=== PATIENT | female | born 1960 | race Caucasian/White ===

== ENCOUNTER 2025-04-05 14:43 | Emergency (ER) | payer MEDICAID, SELFPAY ==
[2025-04-05 14:49] VITALS: BP 160/77; PULSE 58; RESP 18; TEMP 36.5; O2SAT 96; BMI 27.6
--- NOTE | 2025-04-05 14:54 | PD.EDRME ---
Rapid Medical Screening Exam RME Arrival date/time: 04/05/25 14:43 64-year-old female presents to the emergency department for complaints of headache and unsteady gait since Monday patient was seen by PCP and referred to ER for further evaluation Chief Complaint: Headache Vital signs: Vital Signs Temperature 97.7 F 04/05/25 14:49 Pulse Rate 58 L 04/05/25 14:49 Respiratory Rate 18 04/05/25 14:49 Blood Pressure 160/77 H 04/05/25 14:49 Pulse Oximetry (%) 96 04/05/25 14:49 Oxygen Delivery Method Room Air 04/05/25 14:49 Vital signs reviewed by provider: Yes Exam: On exam patient well-appearing does not appear ill or toxic initial neurological exam within normal limits Patient GCS of 15 Clinical Impression: Lab work and imaging obtained
--- NOTE | 2025-04-05 15:01 | XR_ITS ---
Examination: CT brain head without contrast. 2-D sagittal coronal reconstructions Date and time of exam: April 05, 2025, 1409 hours INDICATIONS: Headache unsteady gait today CTDI: vol (mGy): 47 DLP: (mGycm): 900 Technique: Multiple CT axial sections of the brain have been obtained, 5 mm slice thickness. Contrast has not been administered. 2-D sagittal, coronal reconstructions have been obtained Low dose protocols were performed. One or more of the following dose reduction techniques were used; automated exposure control, adjustment of the mA and/or KV according to patient size, use of iterative reconstruction technique. Findings: No significant ventricular enlargement. Intra-axial or extra-axial hemorrhage density is not seen. No mass effect or midline shift Basal cisterns are not remarkable. Fourth ventricle is midline. Cranial vault intact. Impression: Negative for acute hemorrhage, mass effect or midline shift Given the patient's presentation, as clinically warranted, consider brain MRI follow-up
[2025-04-05 15:32] LABS: Basophils # (Auto) 0.0 Thou/mm3 (0.0-0.2); Basophils % (Auto) 0 % (0-2.5); Eosinophils # (Auto) 0.0 Thou/mm3 (0.0-0.5); Eosinophils % (Auto) 0 % (0-10); Hematocrit 43.9 % (36.0-46.0); Hemoglobin 14.6 g/dL (12.0-16.0); Immature Granulocytes Auto 0.02 Thou/mm3 (0.00-0.00); Lymphocytes # (Auto) 1.3 Thou/mm3 (1.0-4.8); Lymphocytes % (Auto) 13 % (10-50); Mean Corpuscular HGB Conc 33.3 g/dl (31.0-37.0); Mean Corpuscular Hemoglobin 29.4 pg (25.0-35.0); Mean Corpuscular Volume 89 fL (80-100); Monocytes # (Auto) 0.4 Thou/mm3 (0.0-0.8); Monocytes % (Auto) 5 % (0-12); Neutrophils # (Auto) 7.9 Thou/mm3 (1.8-7.7); Neutrophils % (Auto) 82 % (37-80); Nucleated Red Blood Cell # 0.00 Thou/mm3 (0.00-0.00); Nucleated Red Blood Cell % 0 /100 WBC (0); Platelet Count 315 Thou/mm3 (140-440); RDW Standard Deviation 44.1 fL (36.4-46.3); Red Blood Count 4.96 Miln/mm3 (4.00-5.20); White Blood Count 9.6 Thou/mm3 (3.6-11.0)
[2025-04-05 15:48] LABS: Alanine Aminotransferase 32 U/L (10-49); Albumin, Serum 4.4 gm/dL (3.4-4.8); Albumin/Globulin Ratio 1.8 (1.2-2.2); Alkaline Phosphatase 95 U/L (46-116); Anion Gap 10 (7-16); Aspartate Amino Transferase 32 U/L (0-34); BUN/Creatinine Ratio 12 Ratio (12-20); Bilirubin,Total 0.7 mg/dL (0.3-1.2); Blood Urea Nitrogen 7 mg/dL (9-23); Calcium 9.3 mg/dL (8.3-10.6); Calcium (Corrected) 9.3 mg/dL (8.5-10.1); Carbon Dioxide 25.6 mMol/L (20.0-31.0); Chloride 109 mMol/L (98-107); Creatinine (Component) 0.6 mg/dL (0.6-1.3); Estimated Creatinine Clearance 72.5 mL/min (>60); Globulin 2.4 gm/dL (2.3-3.5); Glucose 118 mg/dL (74-106); Osmolality,Calculated 287 (275-295); Potassium 4.0 mMol/L (3.4-5.1); Sodium 145 mMol/L (136-145); Total Protein 6.8 gm/dL (5.7-8.2); eGFR > 60 See Note
[2025-04-05 15:51] LABS: Collection Type, Urine Clean Catch
[2025-04-05 16:22] LABS: Amorphous Crystals,Urine Present (Absent); Bilirubin,Urine Negative (Negative); Blood,Urine Negative (Negative); Clarity,Urine Turbid (Clear/Hazy); Color,Urine Lt-Yellow (Lt Yel-Yel); Culture Indicated,Urine Not Indicated; Glucose, Urine Negative (Negative); Ketones,Urine 1+ (Negative); Leukocyte Esterase,Urine Negative (Negative); Nitrite,Urine Negative (Negative); PH,Urine 8.0 (5.0-7.0); Protein,Urine Negative (Neg - Trace); RBC,Urine < 1 /hpf (0-3); Specific Gravity,Urine 1.017 (1.001-1.035); Squamous Epithelial Cell,Urine 1 /hpf (0-5); Urobilinogen,Urine Negative mg/dL (0.0-1.0); WBC,Urine 1 /hpf (0-5)
--- NOTE | 2025-04-05 19:11 | EDNOTE_ITS ---
ED Headache RME/HPI General Chief Complaint: Headache Stated Complaint: HEADACHE X 6 DAYS Time Seen by Provider: 04/05/25 18:25 Arrival date/time: 04/05/25 14:43 RME / HPI RME / HPI Narrative: 04/05/25 14:43 64-year-old female presents to the emergency department for complaints of headache and unsteady gait since Monday patient was seen by PCP and referred to ER for further evaluation DR. VILLATORO MAIN ED EVALUATION: Patient c/o migratory generalized CERDA maximal intensity gradual onset x 3 days, worse when leaning forward. Reports several bouts of nausea and vomiting. Denies phonophobia but reports photophobia. Reports right foot tends to veer to the right when walking. No visual, focal, or motor disturbances. PMH: Negative for DM, HTN, currently on ABX for oral infection PSH: Hysterectomy Allergies: Penicillin Social: Non-smoker, Non-drinker, No illicit drug abuse, Lives at home with Exam: On exam patient well-appearing does not appear ill or toxic initial neurological exam within normal limits Patient GCS of 15 Impression: Lab work and imaging obtained Related Data Home Medications ?Medication ?Instructions ?Recorded ?Confirmed omeprazole 20 mg capsule,delayed 20 mg PO QDAY ##30 release Allergies Allergy/AdvReac Type Severity Reaction Status Date / Time PCN Allergy Uncoded 04/05/25 14:44 Review of Systems Review of Systems Systems Reviewed: All systems reviewed, normal except as documented Past Medical History Past Medical History OTHER HISTORY: Positive Blood Transfusions ED Exam Narrative Physical exam: GEN. APPEARANCE: The patient is alert awake oriented X-3 under no distress, lying down comfortably, does not look ill/toxic. Patient has good eye contact. Patient is cooperative. VITALS: All vitals were reviewed and the pulse ox is 96%, which is normal according to my interpretation HEENT: Normocephalic, atraumatic and noted alodynia to BL temporal regions, tenderness to suboccipital notch L > R. Pupils are equal and reactive. No nystagmus. Oral mucosa is moist. NECK: Supple, nontender, no meningismus, no JVD. There is no thyromegaly and no lymphadenopathy. Without bruit. CHEST: Nontender on palpation no deformity and no crepitus. CARDIOVASCULAR: Heart regular rhythm, no murmur or gallop rub or extra beats. LUNGS: Clear to auscultation bilaterally with symmetrical chest rise. No laboring tachypnea or wheezing. No intercostal subcostal retraction. No rales and no rhonchi. ABDOMEN: Soft, flat, nontender to palpation, no guarding or rebound tenderness. There are no abnormal masses palpated. No pulsatile masses or bruits. Active and normal bowel sounds. EXTREMITIES: Normal inspection and palpation. No edema. No cyanosis. Patient is able to move all 4 extremities well SKIN: Warm and dry, no rashes noted. MUSCULOSKELETAL: No lumbar or midline bony tenderness. There is no CVA tenderness. No paraspinal muscle spasm or tenderness. NEURO: Cranial nerves II through XII grossly intact. There are no focal neurologic deficits noted. GCS is 15. Gait observed as normal. Normal finger to nose. PSYCHIATRIC: Patient is in normal mood and affect, cooperative. LYMPHATICS: No major lymphadenopathy noted. Course Quality Measures none Orders Category Date Time Status CT head/brain wo con Stat Exams 04/05/25 15:01 Completed CBC Stat Lab 04/05/25 15:22 Completed Comprehensive Metabolic Panel Stat Lab 04/05/25 15:22 Completed UA, C/S IF [Urinalysis, C/S if Indicated] Stat Lab 04/05/25 15:45 Completed Dexamethasone Inj [Decadron Inj] Med 04/05/25 19:17 Discontinued 10 mg IM X1 ONE Ketorolac Inj [Toradol Inj] Med 04/05/25 19:17 Discontinued 30 mg IM X1 ONE Prochlorperazine Inj [Compazine Inj] Med 04/05/25 19:17 Discontinued 5 mg IM X1 ONE Vital Signs Vital signs: Vital Signs Temperature 97.7 F 04/05/25 14:49 Pulse Rate 58 L 04/05/25 14:49 Respiratory Rate 18 04/05/25 14:49 Blood Pressure 160/77 H 04/05/25 14:49 Pulse Oximetry (%) 96 04/05/25 14:49 Oxygen Delivery Method Room Air 04/05/25 14:49 Headache MDM Narrative MDM Narrative:: Scribe Attestation: Marbella Gonzalez, am scribing for and in the presence of Dr. Villatoro. Provider Notation: Although this document has been carefully reviewed, there may still be some phonetic and other typographical errors. These errors are purely grammatical due to imperfections in the software program and should not be construed in any way to compromise the substance of the patient's medical care during this visit. Patient c/o migratory generalized CERDA maximal intensity gradual onset x 3 days, worse when leaning forward. Reports several bouts of nausea and vomiting. Please see PE findings. Laboratory markers, including CBC, are essentially unremarkable. Serum chemistries demonstrate mildly elevated chloride of 109 and glucose of 118. UA without infection. Patient's CERDA predominantly that of tension type. Patient was treated with NSAID, steroids, and phenothiazines with mild to moderate relief. CT scan obtained and deems to be negative. Will likely discharge to home with combination of muscle relaxant and anti-inflammatory, in addition to anti-emetic. Patient data External records reviewed:: [facility] previous records (No prior ED records available for review) Clinical information provided by:: patient Social determinants that could affect healthcare access:: none Patient has the following chronic illnesses:: None reported How is presenting disease/condition affected by chronic disease/condition?: no chronic disease Evaluation data The following diagnostics were reviewed and interpreted by me:: lab results and radiology exam(s) Lab and/or radiology exams considered but not ordered:: None Interpretation Summary: RADIOLOGY Head/Brain CT: Findings: No significant ventricular enlargement. Intra-axial or extra-axial hemorrhage density is not seen. No mass effect or midline shift Basal cisterns are not remarkable. Fourth ventricle is midline. Cranial vault intact. Impression: Negative for acute hemorrhage, mass effect or midline shift Given the patient's presentation, as clinically warranted, consider brain MRI follow-up Medications / Prescriptions Medications or Prescriptions considered but not ordered:: None Medication administrations:: Medication Administration History Discontinued Medications Dexamethasone Sodium Phosphate (Dexamethasone Sod Phos Inj 10 Mg/Ml Vial) 10 mg IM X1 ONE Stop: 04/05/25 19:18 Last Admin: 04/05/25 19:33 Dose: 10 mg Documented By: JALEN Ketorolac Tromethamine (Ketorolac Inj 30 Mg/Ml Vial) 30 mg IM X1 ONE Stop: 04/05/25 19:18 Last Admin: 04/05/25 19:33 Dose: 30 mg Documented By: JALEN Prochlorperazine Edisylate (Prochlorperazine Inj 5 Mg/Ml Vial 2 Ml) 5 mg IM X1 ONE; Protocol Stop: 04/05/25 19:18 Last Admin: 04/05/25 19:32 Dose: 5 mg Documented By: JALEN See above if any Consultations Consultation(s) initiated? (list below): No Diagnosis Differential diagnosis headache: migraine, tension headache, headache, meningitis and sinusitis Most likely diagnosis given after review of the tests above:: Tension Headache Admission Indicated Admission indicated?: not indicated Explain why admission is indicated or not indicated:: Patient does not meet admission criteria Admission Request Was there a request for admission?: No Disposition Plan Disposition Plan: Discharge Discharge Attestation Discharge Attestation: The patient and all family members were given an opportunity to ask questions and understood the discharge instructions. Discharge instructions specifically effects, indications for sooner follow up or return to the emergency department, and the expected course of current diagnosis. Patient condition: Stable Discharge Plan Plan Patient Disposition: HOME (Self Care) Prescriptions/Referrals Prescriptions/Med Rec: No Action omeprazole 20 MG capsule,delayed release(DR/EC) 20 mg PO QDAY Qty: 30 Referrals: Amy France FNP-C [Primary Care Provider] - In 1 week Problem List Clinical Impression: Tension headache Patient/Caregiver Discharge Instructions Print Language: [place] Stand Alone Forms: Edwina Award Info., Patient Portal Info Letter
[2025-04-05] MEDS: PROCHLORPERAZINE INJ 5 MG/ML VIAL 2 ML IM (19:32)
[2025-04-05] MEDS: KETOROLAC INJ 30 MG/ML VIAL IM (19:33)
[2025-04-05] MEDS: DEXAMETHASONE SOD PHOS INJ 10 MG/ML VIAL IM (19:33)
[2025-04-05 19:44] VITALS: BP 168/78; PULSE 61; RESP 18; TEMP 36.9; O2SAT 99
== END 2025-04-05 20:36 | disposition home or self-care (01) ==
PROVIDERS: Nurse Practitioner Primary Care; Emergency Provider Emergency Medicine
DX: G44.209 Tension-type headache, unspecified, not intractable (principal)
CPT/HCPCS: 36415; 70450; 80053; 81001; 85025; 96372; 99282; J0780; J1100; J1885

== ENCOUNTER 2025-04-07 19:08 | Emergency (ER) | payer MEDICAID, SELFPAY ==
[2025-04-07 19:14] VITALS: PULSE 74; RESP 18; O2SAT 99; BMI 23.3
--- NOTE | 2025-04-07 19:14 | XR_ITS ---
EXAMINATION: AP chest single view TECHNIQUE: 1. AP portable upright chest single view Date and time: April 07, 2025, 1954 hours INDICATIONS: Stroke alert today FINDINGS: Normal heart size No aspiration pneumonia No pulmonary edema. Moderate osteopenia IMPRESSION: Negative for aspiration pneumonia
--- NOTE | 2025-04-07 19:14 | XR_ITS ---
Examination: CTA carotids with intravenous contrast CTA brain, head with intravenous contrast. 2-D sagittal, coronal reconstructions. 3-D reconstructions. Exam date and time: April 07, 2025, 1950 hours INDICATIONS: Stroke alert, onset headache dizziness unsteady gait today CTDI: vol (mGy) 19.0 DLP: (mGycm) 386 Technique: Multiple CTA axial brain, head carotid images post intravenous contrast injection 75 cc, [id number]. 2-D sagittal, coronal reconstructions. 3-D reconstructions, 3-D post processing including vascular maximum intensity projection images. Low dose protocols were performed. One or more of the following dose reduction techniques were used; automated exposure control, adjustment of the mA and/or KV according to patient size, use of iterative reconstruction technique. Findings: Filling defects in the left internal jugular vein which may be flow phenomenon No significant common carotid carotid bifurcation or internal carotid artery stenoses Dominant right vertebral artery, no critical vertebral artery stenoses in the neck Intracranial vertebral arteries and basilar artery fill, the basilar artery is small but not occluded Posterior cerebral branches fill Both supraclinoid internal carotid arteries are also small but patent M1 segments middle cerebral arteries middle cerebral artery trifurcation vessels and anterior cerebral vessels fill IMPRESSION: No significant neck arterial stenoses No cerebral large vessel arterial occlusions Given the patient's presentation, consider brain MRI MRA without contrast, stroke protocol, follow-up
--- NOTE | 2025-04-07 19:14 | XR_ITS ---
Examination: CT brain head without contrast. 2-D sagittal coronal reconstructions Date and time of exam: April 07, 2025, 1928 hours, comparison April 05, 2025 INDICATIONS: Stroke alert, onset focal neurologic deficit including headache and unsteady gait CTDI: vol (mGy): 46.2 DLP: (mGycm): 904 Technique: Multiple CT axial sections of the brain have been obtained, 5 mm slice thickness. Contrast has not been administered. 2-D sagittal, coronal reconstructions have been obtained Low dose protocols were performed. One or more of the following dose reduction techniques were used; automated exposure control, adjustment of the mA and/or KV according to patient size, use of iterative reconstruction technique. Findings: No significant ventricular enlargement. Again noted cerebral calcifications Intra-axial or extra-axial hemorrhage density is not seen. No mass effect or midline shift Basal cisterns are not remarkable. Fourth ventricle is midline. Cranial vault intact. Impression: Negative for acute hemorrhage, mass effect or midline shift Given the same presentation and symptoms April 05, 2025, consider brain MRI follow-up stroke protocol
--- NOTE | 2025-04-07 19:14 | EKG_ITS ---
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
--- NOTE | 2025-04-07 19:14 | PD.EDNEURO ---
Neuro Symptoms Deficit-RME/HPI General Chief Complaint: General Adult/Misc Complain Stated Complaint: STROKE R/O Arrival date/time: 04/07/25 19:08 RME / HPI RME / HPI Narrative: DR. 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 Reports ongoing mild to moderate intensity headache. No nausea, comiting, confusion, or lateral motor or sensory disturbances. No vomiting. PMH: Negative for DM, HTN, currently on ABX for oral infection PSH: Hysterectomy Allergies: Penicillin Social: Non-smoker, Non-drinker, No illicit drug abuse, Lives at home with Related Data Home Medications ?Medication ?Instructions ?Recorded ?Confirmed omeprazole 20 mg capsule,delayed 20 mg PO QDAY ##30 04/13/15 release Previous Rx's ?Medication ?Instructions ?Recorded cyclobenzaprine 5 mg tablet 5 mg PO BID PRN muscle spasm #20 04/05/25 tabs naproxen 250 mg tablet 250 mg PO BID PRN pain #14 tabs 04/05/25 Allergies Allergy/AdvReac Type Severity Reaction Status Date / Time Penicillins Allergy Intermediate Nausea Verified 04/07/25 20:06 Review of Systems Review of Systems Systems Reviewed: All systems reviewed, normal except as documented Past Medical History Past Medical History OTHER HISTORY: Positive Blood Transfusions Social History SMOKING STATUS: Never smoker ED Exam Narrative Physical exam: GEN. APPEARANCE: The patient is alert awake oriented X-3 under no distress, lying down comfortably, does not look ill/toxic, unable to open left eyelid. Patient has good eye contact. Patient is cooperative. VITALS: All vitals were reviewed and the pulse ox is 99%, which is normal according to my interpretation HEENT: Normocephalic, atraumatic and nontender. Pupils are equal and reactive. Oral mucosa is moist. NECK: Supple, nontender, no meningismus, no JVD. There is no thyromegaly and no lymphadenopathy. CHEST: Nontender on palpation no deformity and no crepitus. CARDIOVASCULAR: Heart regular rhythm, no murmur or gallop rub or extra beats. LUNGS: Clear to auscultation bilaterally with symmetrical chest rise. No laboring tachypnea or wheezing. No intercostal subcostal retraction. No rales and no rhonchi. ABDOMEN: Soft, flat, nontender to palpation, no guarding or rebound tenderness. There are no abnormal masses palpated. No pulsatile masses or bruits. Active and normal bowel sounds. EXTREMITIES: Normal inspection and palpation. No edema. No cyanosis. Patient is able to move all 4 extremities well SKIN: Warm and dry, no rashes noted. MUSCULOSKELETAL: No lumbar or midline bony tenderness. There is no CVA tenderness. No paraspinal muscle spasm or tenderness. NEURO: Cranial nerves II through XII grossly intact. Left-sided nerve III palsy with pupillary dilatation. GCS is 15 PSYCHIATRIC: Patient is in normal mood and affect, cooperative. LYMPHATICS: No major lymphadenopathy noted. Course Course Course Narrative: 22:19 - Discussed with [facility] for transfer. Reviewed the patient?s HPI, PMHx, lab and/or radiology results. Discussed treatment plan. Will call back. 22:35 - Patient accepted by [facility] for transfer. Quality Measures Suspected type of Stroke: Unknown at this time Last know well: unknown Tenecteplase given: Reason(s) TPA not given: Symptoms suggest SAH (3rd N Palsy suggestive of cerebral aneurysm) not given stroke Orders Category Date Time Status Bedside Blood Glucose NOW Care 04/07/25 19:14 Completed Asphalt Paving Supervisor NOW Care 04/07/25 19:14 Completed Continuous Pulse Oximetry NOW Care 04/07/25 19:14 Completed EKG (ED ONLY) *Do not use* NOW Care 04/07/25 19:14 Completed Fingerstick [Bedside Blood Glucose] NOW Care 04/07/25 19:12 Completed In and Out Catheter NEEDED Care 04/07/25 19:14 Completed Insert IV NOW Care 04/07/25 19:14 Completed NIH Stroke Scale now Care 04/07/25 19:14 Completed NPO NOW Care 04/07/25 19:14 Completed Neuro Check Q2HR Care 04/07/25 19:14 Completed Nurse Swallow Screen x1 Care 04/07/25 19:14 Completed Consult to Neurology / Tele-Neurology Routine Cons 04/07/25 19:[address] angio stroke protocol Stat Exams 04/07/25 19:[address] stroke protocol Stat Exams 04/07/25 19:14 Completed EKG (ED Only) Stat Exams 04/07/25 19:14 Draft XR chest 1V portable Stat Exams 04/07/25 19:14 Completed CBC Stat Lab 04/07/25 19:22 Completed Comprehensive Metabolic Panel Stat Lab 04/07/25 19:22 Completed Drug Screen,Urine Stat Lab 04/07/25 20:35 Completed HCG Titer if Positive Stat Lab 04/07/25 19:22 Completed Magnesium Stat Lab 04/07/25 19:22 Completed Partial Thromboplastin Time Stat Lab 04/07/25 19:22 Completed Prothrombin Time with INR Stat Lab 04/07/25 19:22 Completed Troponin I Stat Lab 04/07/25 19:22 Completed Urinalysis, C/S if Indicated Stat Lab 04/07/25 20:35 Completed Morphine* Inj Med 04/07/25 20:09 Discontinued 4 mg IV X1 ONE Ondansetron Inj [Zofran Inj] Med 04/07/25 19:14 Discontinued 4 mg IVP Q4HR PRN Sodium Chloride 0.9% 1000 ml [Ns] 1,000 ml Med 04/07/25 19:15 Discontinued IV Q10H Oxygen Delivery NOW RT 04/07/25 19:14 Completed Vital Signs Vital signs: Vital Signs Temperature 98.6 F 04/07/25 19:21 Pulse Rate 65 04/07/25 19:21 Respiratory Rate 18 04/07/25 19:21 Blood Pressure 160/96 H 04/07/25 19:21 Pulse Oximetry (%) 96 04/07/25 19:21 Oxygen Delivery Method Room Air 04/07/25 19:21 Neuro Symptoms / Deficit MDM Narrative MDM Narrative:: Scribe Attestation: Marbella Gonzalez am scribing for and in the presence of Dr. Villatoro. Provider Notation: Although this document has been carefully reviewed, there may still be some phonetic and other typographical errors. These errors are purely grammatical due to imperfections in the software program and should not be construed in any way to compromise the substance of the patient's medical care during this visit. Patient seen by undersigned 1 day PRODUCTION CONTROL COORDINATING CLERK for gradually increasing generalized headache of approximately 3 weeks duration treated for mixed headache who reportedly this morning was unable to open the left eyelid. Reports ongoing mild to moderate intensity headache. Please see PE findings. Laboratory markers, including CBC and serum chemistries, demonstrate normal CBC, slight left shift without bands. Serum chemistries essentially unremarkable. UA demonstrates ketonuria. Toxicology screen is negative. Patient was enrolled in stroke protocol. Head CT deemed to pbe negative. CTA slightly suboptimal study, although there appears to be a distal right ICA. Case discussed with radiologist and neurotelli doctors, and will consider transfer for four vessel angiography to further delineate possible aneurysm with resultant nerve III palsy. Patient remained neurologically unchanged throughout ED course. Final diagnoses include Third nerve Palsy, R/O cerebral Aneurysm. Patient data External records reviewed:: [facility] [place] (Reviewed prior ED records from 04/05/25. Patient was seen for Tension headache.) and EMS form Clinical information provided by:: patient and EMS Social determinants that could affect healthcare access:: none Patient has the following chronic illnesses:: None reported How is presenting disease/condition affected by chronic disease/condition?: no chronic disease Evaluation data The following diagnostics were reviewed and interpreted by me:: lab results, radiology exam(s) and EKG tracing(s) (EKG demonstrates Sinus bradycardia with rate of 58 bpm, no acute ST segment changes, no ventricular ectopy, axis leftward, intervals are normal, per my interpretation.) Lab and/or radiology exams considered but not ordered:: None Interpretation Summary: RADIOLOGY Head/Brain CT: Findings: No significant ventricular enlargement. Again noted cerebral calcifications Intra-axial or extra-axial hemorrhage density is not seen. No mass effect or midline shift Basal cisterns are not remarkable. Fourth ventricle is midline. Cranial vault intact. Impression: Negative for acute hemorrhage, mass effect or midline shift Given the same presentation and symptoms April 05, 2025, consider brain MRI follow-up stroke protocol Head/Neck CTA: Findings: Filling defects in the left internal jugular vein which may be flow phenomenon No significant common carotid carotid bifurcation or internal carotid artery stenoses Dominant right vertebral artery, no critical vertebral artery stenoses in the neck Intracranial vertebral arteries and basilar artery fill, the basilar artery is small but not occluded Posterior cerebral branches fill Both supraclinoid internal carotid arteries are also small but patent M1 segments middle cerebral arteries middle cerebral artery trifurcation vessels and anterior cerebral vessels fill IMPRESSION: No significant neck arterial stenoses No cerebral large vessel arterial occlusions Given the patient's presentation, consider brain MRI MRA without contrast, stroke protocol, follow-up Chest X-Ray: FINDINGS: Normal heart size No aspiration pneumonia No pulmonary edema. Moderate osteopenia IMPRESSION: Negative for aspiration pneumonia Medications / Prescriptions Medications or Prescriptions considered but not ordered:: None Medication administrations:: Medication Administration History Discontinued Medications Sodium Chloride (Ns) 1,000 mls @ 100 mls/hr IV Q10H ALBA Stop: 05/07/25 19:14 Last Admin: 04/07/25 20:01 Dose: 100 mls/hr Documented By: DT Morphine Sulfate (Morphine Sulf Inj 4 Mg/Ml Vial) 4 mg IV X1 ONE Stop: 04/07/25 20:10 Last Admin: 04/07/25 20:27 Dose: 4 mg Documented By: DT Ondansetron HCl (Ondansetron Inj 2 Mg/Ml Inj 2 Ml) 4 mg IVP Q4HR PRN PRN Reason: NAUSEA OR VOMITING Stop: 05/07/25 19:13 Last Admin: 04/07/25 20:26 Dose: 4 mg Documented By: DT See above if any Consultations Consultation(s) initiated? (list below): Yes Consultation #1 (Physician, Specialty, Details): Telline[facility]rologist made aware of the patient?s HPI, PMHx, lab and/or radiology results. Discussed treatment plan. Pending soft-tissue neck and chest CT with contrast. Will call back for further consult. Time: 19:47 Consultation #2 (Physician, Specialty, Details): Discussed radiology findings with Telline[facility]rologists. Time: 20:55 Consultation #3 (Physician, Specialty, Details): Discussed with [facility] for transfer. Reviewed the patient?s HPI, PMHx, lab and/or radiology results. Discussed treatment plan. Declines transfer, recommends [facility] or [facility]. Time: 22:16 Diagnosis Neuro Differential Diagnosis: convulsions, delirium, peripheral neuropathy, cerebrovascular accident, multiple sclerosis and transient cerebral ischemia Most likely diagnosis given after review of the tests above:: Third cranial nerve palsy, R/O cerebral aneurysm Admission Indicated Admission indicated?: not indicated Explain why admission is indicated or not indicated:: Pending transfer Admission Request Was there a request for admission?: No Disposition Plan Disposition Plan: Transfer Discharge Plan Plan Patient Disposition: [facility] Pt Being Transferred to: [facility] Service Needed for Transfer: Neurosurgery Prescriptions/Referrals Prescriptions/Med Rec: No Action omeprazole 20 MG capsule,delayed release(DR/EC) 20 mg PO QDAY Qty: 30 cyclobenzaprine 5 mg tablet 5 mg PO BID PRN (Reason: muscle spasm) Qty: 20 0RF naproxen 250 mg tablet 250 mg PO BID PRN (Reason: pain) Qty: 14 0RF Referrals: Amy France FNP-C [Primary Care Provider] - In 1 week Problem List Clinical Impression: Third cranial nerve palsy Patient/Caregiver Discharge Instructions Print Language: Cymraes Stand Alone Forms: Edwina Award Info., Patient Portal Info Letter
--- NOTE | 2025-04-07 19:16 | PC.NURSE ---
Case Consult 04/07/2025 19:16:13 [facility] Case # [id number] has been created.
[2025-04-07 19:21] VITALS: BP 160/96; PULSE 65; RESP 18; TEMP 37; O2SAT 96
[2025-04-07 19:37] LABS: Basophils # (Auto) 0.0 Thou/mm3 (0.0-0.2); Basophils % (Auto) 0 % (0-2.5); Eosinophils # (Auto) 0.0 Thou/mm3 (0.0-0.5); Eosinophils % (Auto) 0 % (0-10); Hematocrit 43.7 % (36.0-46.0); Hemoglobin 14.6 g/dL (12.0-16.0); Immature Granulocytes Auto 0.03 Thou/mm3 (0.00-0.00); Lymphocytes # (Auto) 0.9 Thou/mm3 (1.0-4.8); Lymphocytes % (Auto) 8 % (10-50); Mean Corpuscular HGB Conc 33.4 g/dl (31.0-37.0); Mean Corpuscular Hemoglobin 29.2 pg (25.0-35.0); Mean Corpuscular Volume 87 fL (80-100); Monocytes # (Auto) 0.3 Thou/mm3 (0.0-0.8); Monocytes % (Auto) 3 % (0-12); Neutrophils # (Auto) 9.6 Thou/mm3 (1.8-7.7); Neutrophils % (Auto) 89 % (37-80); Nucleated Red Blood Cell # 0.00 Thou/mm3 (0.00-0.00); Nucleated Red Blood Cell % 0 /100 WBC (0); Platelet Count 349 Thou/mm3 (140-440); RDW Standard Deviation 44.0 fL (36.4-46.3); Red Blood Count 5.00 Miln/mm3 (4.00-5.20); White Blood Count 10.8 Thou/mm3 (3.6-11.0)
[2025-04-07 19:53] LABS: INR 1.0 (0.9-1.3); Partial Thromboplastin Time 25.0 Seconds (22.0-36.0); Prothrombin Time 10.9 Seconds (9.0-12.2)
[2025-04-07 19:57] LABS: Alanine Aminotransferase 34 U/L (10-49); Albumin, Serum 4.3 gm/dL (3.4-4.8); Albumin/Globulin Ratio 1.5 (1.2-2.2); Alkaline Phosphatase 92 U/L (46-116); Anion Gap 11 (7-16); Aspartate Amino Transferase 16 U/L (0-34); BUN/Creatinine Ratio 22 Ratio (12-20); Bilirubin,Total 0.7 mg/dL (0.3-1.2); Blood Urea Nitrogen 13 mg/dL (9-23); Calcium 9.5 mg/dL (8.3-10.6); Calcium (Corrected) 9.5 mg/dL (8.5-10.1); Carbon Dioxide 22.5 mMol/L (20.0-31.0); Chloride 109 mMol/L (98-107); Creatinine (Component) 0.6 mg/dL (0.6-1.3); Estimated Creatinine Clearance 81.8 mL/min (>60); Globulin 2.8 gm/dL (2.3-3.5); Glucose 121 mg/dL (74-106); Magnesium 2.0 mg/dL (1.6-2.6); Osmolality,Calculated 284 (275-295); Potassium 4.0 mMol/L (3.4-5.1); Sodium 142 mMol/L (136-145); Total Protein 7.1 gm/dL (5.7-8.2); Troponin I < 0.020 ng/mL (0.0-0.045); eGFR > 60 See Note
[2025-04-07] MEDS: SODIUM CHLORIDE 0.9% 1000 ML 1,000 ML 100 ML IV (20:01)
--- NOTE | 2025-04-07 20:05 | PD.TNEURO ---
Tele Neuro Consultation Consultation Date 04/07/25 Most Recent Vital Signs Last Vital Signs Temp 98.6 F 04/07/25 19:21 Pulse 65 04/07/25 19:21 Resp 18 04/07/25 19:21 BP 160/96 H 04/07/25 19:21 Pulse Ox 96 04/07/25 19:21 O2 Del Method Room Air 04/07/25 19:21 Laboratory-Coagulation Panel PT 10.9 Seconds (9.0-12.2) 04/07/25 19:22 INR 1.0 (0.9-1.3) 04/07/25 19:22 APTT 25.0 Seconds (22.0-36.0) 04/07/25 19:22 Consultation Narrative [facility] Tele[facility]urology Consult Services Patient Name:???Kaley Johnson Date of :???1960 Identification Number:??? Date of Service:???04/07/2025 19:16:13 Diagnosis:?H49.02 - Third oculomotor nerve palsy left eye. Impression: ?The patient has had a headache for a few weeks, and now developed a left complete oculomotor palsy. This is a concerning presentation, with differential diagnosis including enlarging Pcom aneurysm, giant cell arteritis, stroke, sinus thrombosis, infectious etiologies, diabetic third nerve palsy and migraine, which is a diagnosis of exclusion. Doubt myasthenia. ?She is way out of the time window for thrombolysis. ?Her head CT showed no acute pathology, but did show cerebral calcifications consistent with prior cysticercosis infection. ?Check emergent CTA to exclude LVO (unlikely) and aneurysm. The patient may need an angiogram. ?Check MRI brain wwo contrast, and MRV head. ?Check ESR and CRP. May need temporal artery biopsy. ?Hold aspirin until aneurysm/SAH is excluded. ?May need an LP. ?Check TSH, HbA1c. ?Recommend to check lipid profile, and give a statin. ?Recommend strict BP and sugar control. ?Needs inpatient Neurology follow up for further recommendations after these tests are done. Our recommendations are outlined below. Recommendations: ? Stroke/Telemetry Floor ? Neuro Checks (Q4) ? Bedside Swallow Eval ? IV Fluids, Normal Saline ? Head of Bed 30 Degrees ? Euglycemia and Avoid Hyperthermia (PRN Acetaminophen) ? Hold Anticoagulation for Now Sign Out: ? Discussed with Emergency Department Provider Advanced Imaging:Advanced imaging has been ordered. Results pending. Metrics: Last Known Well: Unknown Dispatch Time: 04/07/2025 19:16:13 Arrival Time: 04/07/2025 19:08:00 Initial Response Time: 04/07/2025 19:19:02Symptoms: Left ptosis. Initial patient interaction: 04/07/2025 19:30:17 NIHSS Assessment Completed: 04/07/2025 19:35:17Patient is not a candidate for Thrombolytic. Thrombolytic Medical Decision: 04/07/2025 19:35:18Patient was not deemed candidate for Thrombolytic because of following reasons: LKW outside 4.[address] Head: CT head unremarkable for acute infarction or hemorrhage per Radiology: Calcifications seen. Primary Provider Notified of Diagnostic Impression and Management Plan on: 04/07/2025 19:52:48 History of Present Illness:Patient is a 64 year old Female. Patient was brought by EMS for symptoms of Left ptosis. 64 yo female with a history of HTN, DLP, who has had a headache for a few weeks, seen on 04/05 in the ER and given treatment for headache. Today, upon waking up at 5am, she noticed her left eye could not open, and double vision. She still has a a headache with a C2 distribution on the left side with photo and phonophobia. ? Past Medical History: ?Hypertension ?Hyperlipidemia ?There is no history of Diabetes Mellitus ?There is no history of Coronary Artery Disease Medications: No Anticoagulant use? No Antiplatelet use Reviewed EMR for current medications Allergies:? Reviewed Social History: Smoking: No Alcohol Use: No Drug Use: No Family History: There is no family history of premature cerebrovascular disease pertinent to this consultation ROS : 14 Points Review of Systems was performed and was negative except mentioned in HPI. Past Surgical History: There Is No Surgical History Contributory To Today?s Visit ? Examination: BP(160/96),?Pulse(65),?Blood Glucose(133) 1A: Level of Consciousness - Alert; keenly responsive?+ 0 1B: Ask Month and Age - Both Questions Right?+ 0 1C: Blink Eyes & Squeeze Hands - Performs Both Tasks?+ 0 2: Test Horizontal Extraocular Movements - Forced Gaze Palsy: Cannot Be Overcome?+ 2 3: Test Visual Romero - Partial Hemianopia?+ 1 4: Test Facial Palsy (Use Grimace if Obtunded) - Normal symmetry?+ 0 5A: Test Left Arm Motor Drift - No Drift for 10 Seconds?+ 0 5B: Test Right Arm Motor Drift - No Drift for 10 Seconds?+ 0 6A: Test Left Leg Motor Drift - No Drift for 5 Seconds?+ 0 6B: Test Right Leg Motor Drift - No Drift for 5 Seconds?+ 0 7: Test Limb Ataxia (FNF/Heel-Barragan) - No Ataxia?+ 0 8: Test Sensation - Normal; No sensory loss?+ 0 9: Test Language/Aphasia - Normal; No aphasia?+ 0 10: Test Dysarthria - Normal?+ 0 11: Test Extinction/Inattention - No abnormality?+ 0 NIHSS Score:?3 NIHSS Free Text :?Less sensation on the right leg ?Left ptosis, with left eye down and out and mydriasis Pre-Morbid Modified Мария Scale: 0 Points = No symptoms at all Spoke with :?Dr Wall This consult was conducted in real time using interactive audio and video technology. Patient was informed of the technology being used for this visit and agreed to proceed. Patient located in hospital and provider located at home/office setting. Patient is being evaluated for possible acute neurologic impairment and high probability of imminent or life-threatening deterioration. I spent total of 50 minutes providing care to this patient, including time for face to face visit via telemedicine, review of medical records, imaging studies and discussion of findings with providers, the patient and/or family. Dr Shane Campa [facility] For Inpatient follow-up with [facility] physician please call [facility] at . As we are not an outpatient service for any post hospital discharge needs please contact the hospital for assistance. If you have any questions for the [facility] physicians or need to reconsult for clinical or diagnostic changes please contact us via [facility] at . Non-radiologist review of imaging performed to assist with emergent clinical decision-making. Remote physician workstations do not possess the same resolution, calibration, or diagnostic capabilities as hospital-based radiology reading stations, and formal radiologist read is necessary. Signature :Michael Campa
[2025-04-07 20:10] VITALS: RESP 14; O2SAT 99
[2025-04-07 20:11] LABS: HCG Titer if Positive Negative
[2025-04-07 20:23] VITALS: BP 150/87; PULSE 60; RESP 16; O2SAT 99
[2025-04-07] MEDS: ONDANSETRON INJ 2 MG/ML INJ 2 ML 4 MG IVP (20:26)
[2025-04-07] MEDS: MORPHINE SULF INJ 4 MG/ML VIAL IV (20:27)
[2025-04-07 20:42] LABS: Collection Type, Urine Clean Catch; WBC,Urine 0 /hpf (0-5)
[2025-04-07 20:51] LABS: Amorphous Crystals,Urine Present (Absent); Bilirubin,Urine Negative (Negative); Blood,Urine Trace (Negative); Clarity,Urine Turbid (Clear/Hazy); Color,Urine Lt-Yellow (Lt Yel-Yel); Culture Indicated,Urine Not Indicated; Glucose, Urine Negative (Negative); Ketones,Urine 2+ (Negative); Leukocyte Esterase,Urine Negative (Negative); Nitrite,Urine Negative (Negative); PH,Urine 7.5 (5.0-7.0); Protein,Urine Negative (Neg - Trace); RBC,Urine < 1 /hpf (0-3); Squamous Epithelial Cell,Urine 1 /hpf (0-5); Urobilinogen,Urine Negative mg/dL (0.0-1.0)
[2025-04-07 20:53] LABS: Amphetamine/Methamp Scrn,U Negative (Negative); Barbiturate Screen,Urine Negative (Negative); Benzodiazepines Screen,Urine Negative (Negative); Benzoylecgonine Screen, Ur Negative (Negative); Fentanyl Screen,Urine Negative (Negative); Opiate Screen,Urine Negative (Negative); THC Screen,Urine Negative (Negative)
[2025-04-07 21:01] LABS: Specific Gravity,Urine 1.015 (1.001-1.035)
--- NOTE | 2025-04-07 22:30 | PC.NURSE ---
INFORMATION FAXED TO [facility] FOR TRANSFER, TRANSFER NURSE CALLED AND TALKED TO PETTY LIZAMA FOR NO CAPABILITY.
[2025-04-07 22:31] VITALS: BP 168/72; PULSE 56; RESP 17; TEMP 37.3; O2SAT 97
--- NOTE | 2025-04-07 22:40 | PC.NURSE ---
CALLED [facility] TRANSFER AND INFORMED THEM OF PT NEED OF TRANSFER, TRANSFER NURSE TALKED TO DR. DE LA O.
--- NOTE | 2025-04-07 22:52 | PC.NURSE ---
NURSE TO NURSE REPORT GIVEN VIA TELEPHONE TO [facility]UP[facility] CHARGE NURSE JT PALENCIA
--- NOTE | 2025-04-07 23:00 | PC.NURSE ---
[facility] TRANSFER NURSE INFORMED ME THAT PT IS BEEN ACCEPTED TO [facility] ED TO ED BY DR. BARRERA.
[2025-04-07 23:56] VITALS: BP 161/75; PULSE 50; RESP 18; TEMP 37.1; O2SAT 96
== END 2025-04-08 00:15 | disposition short-term general hospital (02) ==
PROVIDERS: Emergency Provider Emergency Medicine
DX: H49.02 Third [oculomotor] nerve palsy, left eye (principal); I10 Essential (primary) hypertension
CPT/HCPCS: 36415; 70450; 70496; 70498; 71045; 80053; 80307; 81001; 83735; 84484; 84703; 85025; 85610; 85730; 93005; 96374; 99285; A4649; J2270; J2405; J7030; Q9967